=== PATIENT | female | born 1995 | race Two or more races ===

== ENCOUNTER 2018-09-18 15:17 | Emergency (ER) | payer MEDICAID ==
[~2018-09-18] VITALS: Ht 167.6 cm; Wt 126.0 kg
[2018-09-19 00:08] VITALS: BP 128/92
== END 2018-09-19 00:08 | disposition home or self-care (01) ==
LOC: ER 15:17
DX: L98.0 Pyogenic granuloma (principal)
CPT/HCPCS: 81025; 99283